=== PATIENT | female | born 1970 | race Caucasian/White ===

== ENCOUNTER 2024-01-01 16:12 | Inpatient (IN) | payer OTHER ==
[2024-01-01 18:13] LABS: HEMATOCRIT 33.2 % (32.4-45.2); HEMOGLOBIN 10.2 G/dL (10.7-15.3); MCH 20.9 pg (25.7-33.7); MCHC 30.8 g/dl (32.0-36.0); MEAN PLT VOLUME 7.1 fl (7.5-11.1); PLATELET COUNT 589.3 10^3/uL (134-434); RBC 4.88 10^6/uL (3.60-5.2); RDW 19.8 % (11.6-15.6); WHITE BLOOD COUNT 23.6 10^3/uL (4.0-10.8)
[2024-01-01 18:27] LABS: ALBUMIN 3.5 g/dl (3.4-5.0); BILIRUBIN,TOTAL 0.3 mg/dl (0.2-1); CALCIUM 10.2 mg/dl (8.5-10.1); CREATININE 1.1 mg/dl (0.6-1.3); TOT PROT 6.7 g/dl (6.4-8.2)
[2024-01-01 18:29] LABS: POTASSIUM 2.8 mmol/L (3.5-5.1)
[2024-01-01 18:44] LABS: PLATELET ESTIMATE INCREASED
[2024-01-01] MEDS ORDERED: PIPERACILLIN/TAZOB 4.5 GM 4.5 GM/100 ML BAG IVPB ONE (18:57)
[2024-01-01] MEDS: KCL 10 MEQ IVPB 10 MEQ/100 ML INFUS.BAG IVPB SCH (18:57)
[2024-01-01] MEDS ORDERED: KCL 10 MEQ IVPB 20 MEQ/200 ML INFUS.BAG IVPB ONE (19:02)
[2024-01-01] MEDS ORDERED: PIPERACILLIN/TAZOBACTAM 4.5 GM VIAL IVPB ONE (19:02)
[2024-01-01] MEDS ORDERED: POTASSIUM CHLORIDE TABS 20 MEQ TABLET.ER (FP) PO ONE (19:02)
[2024-01-01] MEDS ORDERED: VANCOMYCIN 1,000 MG VIAL (RESTRICTED TO ID ONLY) ONE (19:02)
[2024-01-01] MEDS: KCL 20 MEQ PREMIX BAG 20 MEQ/100 ML INFUS.BAG IVPB SCH (19:21)
[2024-01-01] MEDS: POTASSIUM CHLORIDE ORAL LIQUID 20 MEQ/15 ML PO ONE (19:23)
[2024-01-01] MEDS: ACETAMINOPHEN 325 MG TABLET (FP) PO PRN (20:30)
[2024-01-01 22:26] VITALS: BMI 30.5
[2024-01-01] MEDS: VANCOMYCIN 1,000 MG in DEXTROSE 5%-WATER - 250 ML IVPB ONE (22:41)
[2024-01-01] MEDS: ENOXAPARIN NA (PORCINE) 40 MG/0.4 ML DISP.SYRIN SQ SCH (23:36)
[2024-01-02] MEDS ORDERED: MECLIZINE HCL 25 MG TABLET (FP) PO PRN (00:49)
[2024-01-02] MEDS: FUROSEMIDE 40 MG TABLET (FP) PO SCH ×2 (01:14→06:07)
[2024-01-02] MEDS: MECLIZINE HCL 25 MG TABLET (FP) PO SCH (01:14)
[2024-01-02] MEDS ORDERED: PIPERACILLIN/TAZOB 4.5 GM 4.5 GM/100 ML BAG IVPB ONE (01:45)
[2024-01-02] MEDS: PIPERACILLIN/TAZOB 4.5 GM 4.5 GM in DEXTROSE 5%-WATER 100 ML IVPB ONE (01:54)
[2024-01-02] MEDS ORDERED: PIPERACILLIN/TAZOB 3.375 GM 3.375 GM in DEXTROSE 5%-WATER - 50 ML IVPB SCH (03:00)
[2024-01-02] MEDS: BACLOFEN 10 MG TABLET (FP) PO SCH (10:09)
[2024-01-02] MEDS: PIPERACILLIN/TAZOB 3.375 GM 3.375 GM in DEXTROSE 5%-WATER - 50 ML IVPB SCH ×2 (10:10→17:15)
[2024-01-02 11:20] LABS: CREATININE 0.9 mg/dl (0.6-1.3); MAGNESIUM 1.7 mg/dL (1.8-2.4); POTASSIUM 3.6 mmol/L (3.5-5.1)
[2024-01-02 12:32] LABS: BASO % 0.5 % (0-2.0); EOS % 5.5 % (0-4.5); HEMATOCRIT 28.9 % (32.4-45.2); MCH 20.2 pg (25.7-33.7); MCHC 31.3 g/dl (32.0-36.0); MEAN CELL VOLUME 64.7 fl (80-96); MONO % 5.7 % (3.8-10.2); NEUT % 77.3 % (42.8-82.8); PLATELET COUNT 622 10^3/uL (134-434); RBC 4.46 M/mm3 (3.60-5.2); RDW 17.8 % (11.6-15.6); WHITE BLOOD COUNT 16.8 K/mm3 (4.0-10.0)
[2024-01-02 13:03] LABS: ANISOCYTOSIS 3+; MACROCYTOSIS 0
[2024-01-02] MEDS: NYSTATIN POWDER 100,000 UNITS/GM - 15 GM TOPICAL POWDER TP SCH (15:45)
[2024-01-02] MEDS: CLOTRIMAZOLE/BETAMET DIPROP 15 GM TUBE TP SCH (15:45)
[2024-01-02] MEDS: CEFTRIAXONE 1 GM in DEXTROSE 5%-WATER - 50 ML IVPB SCH (17:15)
[2024-01-02] MEDS ORDERED: VANCOMYCIN 1,000 MG in DEXTROSE 5%-WATER - 250 ML IVPB SCH (21:00)
[2024-01-02] MEDS: MAGNESIUM OXIDE 400 MG TABLET (FP) PO ONE (21:52)
[2024-01-02] MEDS: DOXYCYCLINE INJECTION 100 MG in DEXTROSE 5%-WATER 100 ML IVPB SCH (21:52)
[2024-01-02] MEDS ORDERED: VANCOMYCIN/WATER FOR INJ (PEG) 1,000 MG/200 ML BAG IVPB ONE (22:00)
[2024-01-03 08:11] LABS: URIC ACID CRYSTALS MOD /hpf (NONE SEEN)
[2024-01-04 00:55] VITALS: RESP 18
[2024-01-05] MEDS: LORATADINE 10 MG TABLET PO SCH (09:36)
[2024-01-05 09:40] LABS: HEMATOCRIT 30.9 % (32.4-45.2); HEMOGLOBIN 9.4 G/dL (10.7-15.3); MCH 20.9 pg (25.7-33.7); MCHC 30.6 g/dl (32.0-36.0); MEAN CELL VOLUME 68.6 fl (80-96); MEAN PLT VOLUME 7.2 fl (7.5-11.1); PLATELET COUNT 556.2 10^3/uL (134-434); RBC 4.51 10^6/uL (3.60-5.2); RDW 18.6 % (11.6-15.6); WHITE BLOOD COUNT 15.7 10^3/uL (4.0-10.8)
[2024-01-05 09:51] LABS: ALBUMIN 3.6 g/dl (3.4-5.0); ALK PHOS 83 U/L (45-117); ANION GAP 11 mmol/L (4-13); BILIRUBIN,TOTAL 0.2 mg/dl (0.2-1); CALCIUM 10.4 mg/dl (8.5-10.1); CHLORIDE 103 mmol/L (98-107); CO2 32 mmol/L (21-32); CREATININE 0.6 mg/dl (0.6-1.3); GLUCOSE,RANDOM 107 mg/dl (74-106); POTASSIUM 3.4 mmol/L (3.5-5.1); SGOT/AST 16 U/L (15-37); SGPT/ALT 18 U/L (7-52); SODIUM 146 mmol/L (136-145); TOT PROT 6.5 g/dl (6.4-8.2)
[2024-01-05] MEDS: MULTIVITAMINS (DAILY MVI) TABLET (FP) PO SCH (12:40)
[2024-01-05] MEDS: APIXABAN 2.5 MG TABLET PO SCH (12:40)
[2024-01-05] MEDS: NYSTATIN 500,000 UNITS/5 ML SUSPENSION PO SCH (12:41)
[2024-01-05 13:03] LABS: ANISOCYTOSIS 1+
[2024-01-06] MEDS: POTASSIUM CHLORIDE ORAL LIQUID 20 MEQ/15 ML PO ONE (14:28)
[2024-01-06] MEDS: CLOTRIMAZOLE/BETAMET DIPROP TOPICAL CREAM 45 GM TUBE TP SCH (22:44)
[2024-01-07] MEDS: ONDANSETRON 4 MG/2 ML VIAL IVPUSH PRN (00:14)
[2024-01-07 10:15] VITALS: BP 114/54; PULSE 105; TEMP 98.7
== END 2024-01-07 13:52 | disposition home or self-care (01) | DRG 602 ==
LOC: FER 16:12 → FM/S 18:41
PROVIDERS: ADMIT Internal Medicine; ATTEND Internal Medicine
DX: L03.115 Cellulitis of right lower limb (principal); R53.2 Functional quadriplegia; L03.116 Cellulitis of left lower limb; G80.9 Cerebral palsy, unspecified; B36.9 Superficial mycosis, unspecified; E87.6 Hypokalemia; I89.0 Lymphedema, not elsewhere classified; R21 Rash and other nonspecific skin eruption; L20.9 Atopic dermatitis, unspecified; E83.52 Hypercalcemia
CPT/HCPCS: 0241U-QW; 36415; 71045-TC-FY; 80048; 80053; 81003; 81015; 82308; 83735; 85025; 85027; 87040; 87086; 93970-TC; 99285-25; J0475

== ENCOUNTER 2024-01-21 12:26 | Emergency (ER) | payer OTHER ==
[2024-01-21 13:43] VITALS: BP 181/81; PULSE 89; RESP 20; TEMP 98.2; BMI 25.4
== END 2024-01-21 15:37 | disposition home or self-care (01) ==
LOC: FER 12:26
DX: I89.0 Lymphedema, not elsewhere classified (principal); M79.604 Pain in right leg; M79.605 Pain in left leg
CPT/HCPCS: 99283-25

== ENCOUNTER 2024-07-24 12:03 | Emergency (ER) | payer OTHER ==
[2024-07-24 12:25] VITALS: BP 153/88; PULSE 80; RESP 18; TEMP 97.7; BMI 33.6
[2024-07-24] MEDS: ASPIRIN 81 MG CHEWABLE TABLETS PO ONE (12:59)
[2024-07-24 13:17] LABS: HEMATOCRIT 30.1 % (32.4-45.2); HEMOGLOBIN 8.9 G/dL (10.7-15.3); MCHC 29.7 g/dl (32.0-36.0); MEAN CELL VOLUME 65.2 fl (80-96); MEAN PLT VOLUME 8.2 fl (7.5-11.1); PLATELET COUNT 510.6 10^3/uL (134-434); RBC 4.61 10^6/uL (3.60-5.2); RDW 22.9 % (11.6-15.6); WHITE BLOOD COUNT 11.7 10^3/uL (4.0-10.8)
[2024-07-24 13:18] LABS: MCH 19.4 pg (25.7-33.7)
[2024-07-24 13:27] LABS: ANISOCYTOSIS 1+
[2024-07-24 13:45] LABS: ALBUMIN 4.4 g/dl (3.4-5.0); BILIRUBIN,TOTAL 0.4 mg/dl (0.2-1); CALCIUM 11.4 mg/dl (8.5-10.1); CREATININE 0.6 mg/dl (0.6-1.3); POTASSIUM 4.7 mmol/L (3.5-5.1)
== END 2024-07-24 14:48 | disposition home or self-care (01) ==
LOC: FER 12:03
DX: R10.13 Epigastric pain (principal); R07.2 Precordial pain
CPT/HCPCS: 36415; 71045-TC-FY; 80053; 82550; 83690; 83735; 84484; 85025; 93005; 99285-25

== ENCOUNTER 2025-04-12 09:57 | Observation (INO) | payer OTHER ==
[2025-04-12 15:53] LABS: URINE APPEARANCE TURBID; URINE BILIRUBIN NEGATIVE (NEGATIVE); URINE COLOR YELLOW; URINE GLUCOSE (UA) NEGATIVE (NEGATIVE)
[2025-04-12 15:54] LABS: URINE KETONE NEGATIVE (NEGATIVE); URINE LEUK ESTERASE 3+ (NEGATIVE); URINE NITRITE NEGATIVE (NEGATIVE); URINE PROTEIN 3+ (NEGATIVE); URINE UROBILINOGEN 0.2 mg/dL (0.2-1.0)
[2025-04-12 16:10] LABS: GLUCOSE,RANDOM 89.0 mg/dL (74-106); TOT PROT 7.4 g/dl (6.4-8.2)
[2025-04-12 16:11] LABS: CO2 22.0 mmol/L (21-32)
[2025-04-12 16:13] LABS: ALK PHOS 116.0 U/L (40-150)
[2025-04-12 16:15] LABS: CREATININE 0.41 mg/dL (0.55-1.3); SGOT/AST 36.0 U/L (5-34); SGPT/ALT 32.0 U/L (0-55)
[2025-04-12 16:38] LABS: ABSOLUTE IMMATURE GRANULOCYTES 0.05 x10^3/uL (0.0-0.031); BASOPHILS # 0.07 x10^3/uL (0.01-0.08); EOSINOPHIL % 4.0 % (0.7-5.8); EOSINOPHILS # 0.55 x10^3/uL (0.04-0.36); MCHC 29.1 g/dl (32.2-35.5); MEAN CELL VOLUME 77.6 fl (79.4-94.8); MONOCYTE # 0.95 x10^3/uL (0.24-0.86); MONOCYTE % 7.0 % (4.7-12.5)
[2025-04-12] MEDS ORDERED: SENNOSIDES 8.6MG TABLET (FP) PO PRN (17:20)
[2025-04-12] MEDS ORDERED: PATIENT'S OWN MEDICATION (NON-FORMULARY) (Tramadol Hcl/Acetaminophen [Tramadol-Acetaminoph PO PRN (17:39)
[2025-04-12] MEDS ORDERED: CEFTRIAXONE 1 GM/50 ML BAG ONE (18:00)
[2025-04-12] MEDS: CEFTRIAXONE 1 GM in DEXTROSE 5%-WATER - 100 ML IVPB ONE (18:03)
[2025-04-12] MEDS: morphine CARPU-JECT 2 MG/1 ML DISP.SYRIN IVPUSH PRN (19:46)
[2025-04-12] MEDS ORDERED: SODIUM CHLORIDE 1,000 ML IV SCH (20:00)
[2025-04-12 21:03] VITALS: RESP 18; BMI 22.8
[2025-04-12] MEDS: GABAPENTIN 300 MG CAPSULE PO SCH (21:49)
[2025-04-12] MEDS: APIXABAN 2.5 MG TABLET PO SCH (21:49)
[2025-04-12] MEDS ORDERED: PRAMOXINE HCL/CALAMINE 177 ML LOTION TP SCH (22:00)
[2025-04-12 23:09] LABS: GLUCOSE,RANDOM 107.0 mg/dL (74-106)
[2025-04-12 23:11] LABS: CO2 22.0 mmol/L (21-32)
[2025-04-12 23:15] LABS: CREATININE 0.43 mg/dL (0.55-1.3)
[2025-04-12] MEDS: NYSTATIN POWDER 100,000 UNITS/GM - 15 GM TOPICAL POWDER TP SCH (23:15)
[2025-04-12] MEDS: CALMINE 3% & PRAMOXINE 1% (AVEENO ANTI-ITCH) BOTTLE TP SCH (23:15)
[2025-04-12] MEDS: NEBIVOLOL 5 MG TABLET (FP) PO SCH (23:15)
[2025-04-13] MEDS: MAG HYDROX/AL HYDROX/SIMETH 30 ML UNIT-DOSE CUP PO PRN (05:37)
[2025-04-13] MEDS: SIMETHICONE 80 MG TAB.CHEW (FP) PO ONE (06:07)
[2025-04-13] MEDS: SIMETHICONE 40 MG/0.6 ML BOTTLE PO ONE (06:08)
[2025-04-13] MEDS: POLYETHYLENE GLYCOL (HEALTHYLAX) 3350 17 GM PACKET PO SCH (09:27)
[2025-04-13] MEDS: FUROSEMIDE 40 MG TABLET (FP) PO SCH (09:27)
[2025-04-13] MEDS: CEFTRIAXONE 1 GM in DEXTROSE 5%-WATER - 50 ML IVPB SCH (09:27)
[2025-04-13] MEDS: BACLOFEN 10 MG TABLET (FP) PO SCH (09:27)
[2025-04-13 09:43] LABS: GLUCOSE,RANDOM 92.0 mg/dL (74-106)
[2025-04-13 09:44] LABS: TOT PROT 6.4 g/dl (6.4-8.2)
[2025-04-13 09:45] LABS: CO2 24.0 mmol/L (21-32)
[2025-04-13 09:46] LABS: ALK PHOS 97.0 U/L (40-150)
[2025-04-13 09:49] LABS: CREATININE 0.47 mg/dL (0.55-1.3); SGOT/AST 21.0 U/L (5-34); SGPT/ALT 25.0 U/L (0-55)
[2025-04-13] MEDS ORDERED: ENOXAPARIN NA (PORCINE) 40 MG/0.4 ML DISP.SYRIN SQ SCH (10:00)
[2025-04-13 10:35] LABS: BASOPHILS # 0.07 x10^3/uL (0.01-0.08)
[2025-04-13 10:36] LABS: ABSOLUTE IMMATURE GRANULOCYTES 0.07 x10^3/uL (0.0-0.031); EOSINOPHIL % 4.9 % (0.7-5.8); EOSINOPHILS # 0.53 x10^3/uL (0.04-0.36); MCHC 30.0 g/dl (32.2-35.5); MEAN CELL VOLUME 76.3 fl (79.4-94.8); MONOCYTE # 0.86 x10^3/uL (0.24-0.86); MONOCYTE % 8.0 % (4.7-12.5)
[2025-04-13] MEDS: NITROFURANTOIN MONOHYD/M-CRYST 100 MG CAPSULE PO SCH (21:16)
[2025-04-13] MEDS: ALBUTEROL SO4 HFA INHALER IH PRN (21:17)
[2025-04-14] MEDS: PHENAZOPYRIDINE HCL 100 MG TABLET (FP) PO PRN (10:20)
[2025-04-14] MEDS: BISACODYL 5 MG TABLET.DR (FP) PO ONE (14:32)
[2025-04-14 14:45] VITALS: BP 110/65; PULSE 77; TEMP 98
== END 2025-04-14 17:00 | disposition home or self-care (01) ==
LOC: JER 09:57 → JERBED 13:11 → J6S 18:37
PROVIDERS: ADMIT Internal Medicine; ATTEND Internal Medicine
PROC: 3E03329 Introduction of Other Anti-infective into Peripheral Vein, Percutaneous Approach (ICD-10-PCS; principal; 2025-04-12)
PROC: 3E033NZ Introduction of Analgesics, Hypnotics, Sedatives into Peripheral Vein, Percutaneous Approach (ICD-10-PCS; 2025-04-12)
DX: R33.9 Retention of urine, unspecified (principal); I11.0 Hypertensive heart disease with heart failure; K59.00 Constipation, unspecified; I89.0 Lymphedema, not elsewhere classified; E87.5 Hyperkalemia; E83.52 Hypercalcemia; G80.8 Other cerebral palsy; Z79.01 Long term (current) use of anticoagulants; Z88.2 Allergy status to sulfonamides; Z88.5 Allergy status to narcotic agent; Z91.010 Allergy to peanuts
CPT/HCPCS: 36415; 80048; 80053; 81003; 83735; 83970; 84100; 85025; 87086; 96365; 96366; 96375; 99285-25; G0378; J0475